=== PATIENT | female | born 1955 | race Caucasian/White ===

== ENCOUNTER 2017-11-28 05:23 | Day surgery (SDC) | payer OTHER ==
[2017-11-21 13:55] VITALS: BP 124/67
[~2017-11-28] VITALS: Ht 165.1 cm; Wt 135.5 kg
[~2017-11-28 05:23] MED LIST: ASPI-496 PO; CYCL5TAB PO; ESTR1TAB15 PO; FERR220S17 PO; LEVO175T5 PO; MELO15TA24 PO; SIMV40TA3 PO; Vitamin D2 PO; WARF-36 PO; vitamin d PO
[2017-11-28] MEDS ORDERED: LACTATED RINGERS 1,000 ML IV SCH (06:03)
[2017-11-28 06:06] VITALS: BP 124/67
[2017-11-28] MEDS ORDERED: LIDOCAINE 1%-EPI 1:100K, 30ML ONE (06:19)
[2017-11-28] MEDS ORDERED: ROPIvacaine/PF 0.5%, 30 ML ONE (06:19)
[2017-11-28] MEDS ORDERED: LIDOCAINE-MPF 1%, 2ML INFIL ONE (06:30)
[2017-11-28] MEDS ORDERED: FENTANYL PF 100 MCG/2ML ONE ×2 (06:42→08:09)
[2017-11-28] MEDS ORDERED: ONDANSETRON 2MG/ML, 2ML ONE (06:44)
[2017-11-28] MEDS ORDERED: DEXAMETHASONE 4 MG/ML, 1ML ONE (06:44)
[2017-11-28] MEDS ORDERED: CEFAZOLIN 1,000 MG ONE ×2 (06:44→07:00)
[2017-11-28] MEDS ORDERED: PROPOFOL 50 ML ONE ×2 (06:44→07:39)
[2017-11-28] MEDS ORDERED: PROPOFOL 10 MG/ML, 20ML ONE (06:44)
[2017-11-28] MEDS ORDERED: ALBUTEROL/IPRATROPIUM 2.5MG/0.5MG, 3 ML NPPB PRN (07:00)
[2017-11-28] MEDS ORDERED: PROMETHAZINE 25 MG SUPP PR PRN (07:00)
[2017-11-28] MEDS ORDERED: HYDROmorphone 1 MG/ML, 1ML IV PRN (07:00)
[2017-11-28] MEDS ORDERED: EPHEDRINE 50 MG/ML, 1ML IM PRN (07:00)
[2017-11-28] MEDS ORDERED: SCOPOLAMINE PATCH, 1.5MG PATCH.TD72 TD ONE (07:00)
[2017-11-28] MEDS ORDERED: PROMETHAZINE 25 MG/ML, 1ML IV PRN (07:00)
[2017-11-28] MEDS ORDERED: OXYcodone 5 MG/5 ML ORAL.SOL UDC PO PRN (07:00)
[2017-11-28] MEDS ORDERED: MEPERIDINE/PF 25MG/0.5ML IVPush PRN (07:00)
[2017-11-28] MEDS ORDERED: GABAPENTIN 300 MG CAPSULE PO ONE (07:00)
[2017-11-28] MEDS ORDERED: MIDAZOLAM 1 MG/ML, 2ML IV PRN (07:00)
[2017-11-28] MEDS ORDERED: LABETALOL 5MG/ML, 20ML IV PRN (07:00)
[2017-11-28] MEDS ORDERED: ACETAMINOPHEN 500 MG TABLET PO ONE (07:00)
[2017-11-28] MEDS ORDERED: ONDANSETRON 2MG/ML, 2ML IV PRN (07:00)
[2017-11-28] MEDS ORDERED: LIDOCAINE 1%-EPI 1:100K, 30ML INFIL ONE (07:25)
[2017-11-28] MEDS ORDERED: ROPIvacaine/PF 0.5%, 30 ML INFIL ONE (07:26)
[2017-11-28] MEDS ORDERED: LIDOCAINE-MPF 2% ,5ML ONE (07:39)
[2017-11-28] MEDS ORDERED: KETOROLAC 30 MG/1 ML ONE (07:39)
[2017-11-28] MEDS ORDERED: OXYcodone 5 MG/5 ML ORAL.SOL UDC ONE (08:09)
[2017-11-28] MEDS: FENTANYL PF 100 MCG/2ML IV PRN ×2 (08:12→08:22)
== END 2017-11-28 10:10 | disposition home or self-care (01) ==
LOC: OUT 05:23
PROVIDERS: ATTEND Orthopaedic Surgery
DX: S83.241A Other tear of medial meniscus, current injury, right knee, initial encounter (principal); S83.281A Other tear of lateral meniscus, current injury, right knee, initial encounter; M94.261 Chondromalacia, right knee; M65.861 Other synovitis and tenosynovitis, right lower leg; E66.01 Morbid (severe) obesity due to excess calories; X58.XXXA Exposure to other specified factors, initial encounter; Y93.89 Activity, other specified; Y92.89 Other specified places as the place of occurrence of the external cause; Y99.8 Other external cause status; Z68.42 Body mass index [BMI] 45.0-49.9, adult; Z88.5 Allergy status to narcotic agent; Z79.82 Long term (current) use of aspirin; Z86.718 Personal history of other venous thrombosis and embolism; Z98.890 Other specified postprocedural states; Z79.899 Other long term (current) drug therapy
CPT/HCPCS: 29880; J0690; J1100; J1885; J2405; J2704; J2795; J3010; J3490; J7120

== ENCOUNTER 2018-01-21 09:53 | Day surgery (SDC) | payer OTHER ==
[~2018-01-21] VITALS: Ht 165.1 cm; Wt 133.6 kg
[2018-01-21] MEDS ORDERED: LACTATED RINGERS 1,000 ML IV SCH (10:20)
[2018-01-21 10:54] VITALS: BP 133/82
[2018-01-21] MEDS ORDERED: FENTANYL PF 100 MCG/2ML ONE (11:51)
[2018-01-21] MEDS ORDERED: MIDAZOLAM 1 MG/ML, 2ML ONE (11:51)
[2018-01-21] MEDS ORDERED: METOCLOPRAMIDE 5 MG/ML, 2ML ONE (12:10)
[2018-01-21] MEDS ORDERED: LIDOCAINE JELLY 2%, 30GM ONE (12:10)
[2018-01-21] MEDS ORDERED: PROPOFOL 10 MG/ML, 20ML ONE (12:10)
[2018-01-21] MEDS ORDERED: PHENYLEPHRINE 10 MG/ML ONE (12:10)
[2018-01-21] MEDS ORDERED: DEXAMETHASONE 4 MG/ML, 1ML ONE (12:10)
[2018-01-21] MEDS ORDERED: ONDANSETRON 2MG/ML, 2ML ONE (12:10)
[2018-01-21] MEDS ORDERED: LIDOCAINE-MPF 2% ,5ML ONE (12:10)
[2018-01-21] MEDS ORDERED: SUCCINYLCHOLINE 20 MG/ML, 10ML ONE (12:10)
[2018-01-21] MEDS ORDERED: LABETALOL 5MG/ML, 20ML IV PRN (13:00)
[2018-01-21] MEDS ORDERED: ONDANSETRON 2MG/ML, 2ML IVPush PRN (13:00)
[2018-01-21] MEDS ORDERED: MIDAZOLAM 1 MG/ML, 2ML IV PRN (13:00)
[2018-01-21] MEDS ORDERED: MEPERIDINE/PF 25MG/0.5ML IVPush PRN (13:00)
[2018-01-21] MEDS ORDERED: HYDROmorphone 1 MG/ML, 1ML IV PRN (13:00)
[2018-01-21] MEDS ORDERED: FENTANYL PF 100 MCG/2ML IV PRN (13:00)
[2018-01-21] MEDS ORDERED: OXYcodone 5 MG/5 ML ORAL.SOL UDC PO PRN (13:00)
== END 2018-01-21 14:40 | disposition home or self-care (01) ==
LOC: OUT 09:53
PROVIDERS: ATTEND Internal Medicine
DX: D50.9 Iron deficiency anemia, unspecified (principal); K31.89 Other diseases of stomach and duodenum; E66.9 Obesity, unspecified; E78.00 Pure hypercholesterolemia, unspecified; Z88.5 Allergy status to narcotic agent; Z98.84 Bariatric surgery status
CPT/HCPCS: 43239; 45378; 88305; J0330; J1100; J2250; J2370; J2405; J2704; J2765; J3010; J3490; J7120

== ENCOUNTER → 2019-11-28 | Outpatient (CLI) | payer OTHER ==
[~2019-11-28] MED LIST changes: +FERR220S16 PO; -FERR220S17 PO; +SIMV40TA20 PO; -SIMV40TA3 PO
== END | disposition home or self-care (01) ==
LOC: STAR 08:50
PROVIDERS: ATTEND Thoracic Surgery (Cardiothoracic Vascular Surgery)
DX: Z01.818 Encounter for other preprocedural examination (principal); Z11.59 Encounter for screening for other viral diseases; K44.9 Diaphragmatic hernia without obstruction or gangrene
CPT/HCPCS: 36415; 87635; 93005

== ENCOUNTER 2019-12-03 07:22 | Inpatient (IN) | payer OTHER ==
[~2019-12-03] VITALS: Ht 167.6 cm; Wt 138.8 kg
[~2019-12-03 07:22] MED LIST changes: +BUPIVACAINE/PF-EPI 0.5% 1:200K ONE
[2019-12-03] MEDS ORDERED: LACTATED RINGERS 1,000 ML IV SCH (07:56)
[2019-12-03 07:57] VITALS: BP 139/83
[2019-12-03] MEDS ORDERED: CHLORHEXIDINE 15 ML UDC MM ONE (08:00)
[2019-12-03] MEDS ORDERED: CHLORHEXIDINE 15 ML UDC ONE (08:03)
[2019-12-03] MEDS ORDERED: FENTANYL PF 250 MCG/5ML ONE (08:05)
[2019-12-03] MEDS ORDERED: MIDAZOLAM 1 MG/ML, 2ML ONE (08:05)
[2019-12-03] MEDS ORDERED: CEFAZOLIN 1,000 MG ONE ×2 (08:08→09:25)
[2019-12-03] MEDS ORDERED: PROPOFOL 10 MG/ML, 20ML ONE (08:08)
[2019-12-03] MEDS ORDERED: DEXAMETHASONE 4 MG/ML, 1ML ONE (08:08)
[2019-12-03] MEDS ORDERED: GLYCOPYRROLATE 0.2MG/1ML, 5ML ONE (08:08)
[2019-12-03] MEDS ORDERED: ROCURONIUM 10MG/ML,5ML ONE (08:08)
[2019-12-03] MEDS ORDERED: ONDANSETRON 2MG/ML, 2ML ONE (08:08)
[2019-12-03] MEDS ORDERED: NEOSTIGMINE 1 MG/ML, 10ML ONE (08:08)
[2019-12-03] MEDS ORDERED: SUGAMMADEX 200 MG/2 ML IVPush ONE (09:26)
[2019-12-03] MEDS ORDERED: HYDROmorphone 1 MG/ML, 1ML INJ IVPush PRN (09:30)
[2019-12-03] MEDS ORDERED: FENTANYL PF 100 MCG/2ML IV PRN (09:30)
[2019-12-03] MEDS ORDERED: HALOPERIDOL 5 MG/ML IV PRN (09:30)
[2019-12-03] MEDS ORDERED: PROMETHAZINE 25 MG/ML, 1ML IVPush PRN (09:30)
[2019-12-03] MEDS ORDERED: LABETALOL 5MG/ML, 20ML IV PRN (09:30)
[2019-12-03] MEDS ORDERED: OXYcodone 5 MG/5 ML ORAL.SOL UDC PO PRN (09:30)
[2019-12-03] MEDS ORDERED: hydrALAzine 20 MG/ML, 1ML IV PRN (09:30)
[2019-12-03] MEDS ORDERED: MEPERIDINE/PF 25MG/0.5ML IVPush PRN (09:30)
[2019-12-03] MEDS ORDERED: FENTANYL PF 100 MCG/2ML ONE ×5 (09:56→10:46)
[2019-12-03] MEDS ORDERED: BUPIVACAINE/PF-EPI 0.5% 1:200K ONE (10:00)
[2019-12-03] MEDS ORDERED: PHENOL THROAT SPRAY BOTTLE MM PRN (11:30)
[2019-12-03] MEDS ORDERED: ENALAPRILAT 1.25 MG/ML, 2ML IV PRN (11:30)
[2019-12-03] MEDS ORDERED: DIPHENHYDRAMINE 50 MG/ML, 1ML IV PRN (11:30)
[2019-12-03] MEDS ORDERED: HYDROcodone/APAP 7.5-325MG/15ML UDC PO PRN (11:30)
[2019-12-03] MEDS ORDERED: hydrALAzine 20 MG/ML, 1ML IVPush PRN (11:30)
[2019-12-03] MEDS ORDERED: PROMETHAZINE 12.5 MG SUPP PR PRN (11:30)
[2019-12-03] MEDS ORDERED: LORazepam 2 MG/ML, 1ML IV PRN (11:30)
[2019-12-03] MEDS ORDERED: morphine SULFATE 10 MG/ML, 1ML ONE (12:17)
[2019-12-03] MEDS: morphine SULFATE 10 MG/ML, 1ML IVPush PRN ×8 (12:18→20:45)
[2019-12-03] MEDS: LACTATED RINGERS 1,000 ML IV SCH ×2 (12:51→15:53)
[2019-12-03 14:32] VITALS: BP 127/73
[2019-12-03 18:44] VITALS: BP 146/82
[2019-12-03] MEDS: ONDANSETRON 2MG/ML, 2ML IVPush PRN (20:45)
[2019-12-04 00:56] VITALS: BP 128/80
[2019-12-04 03:45] VITALS: BP 137/84
[2019-12-04] MEDS: ONDANSETRON 2MG/ML, 2ML IVPush PRN (05:17)
[2019-12-04] MEDS: morphine SULFATE 10 MG/ML, 1ML IVPush PRN ×2 (05:17→10:39)
[2019-12-04] MEDS: LEVOTHYROXINE 175 MCG TABLET PO SCH (05:26)
[2019-12-04 06:31] VITALS: BP 129/83
[2019-12-04 06:49] LABS: BASOPHILS # (AUTO) 0.04 x10^3/uL (0-0.1); BASOPHILS % (AUTO) 1 % (0-1); EOSINOPHILS % (AUTO) 0 % (1-7); LYMPHOCYTES # (AUTO) 0.56 x10^3/uL (1-3.4); LYMPHOCYTES % (AUTO) 7 % (22-44); MD NO; MEAN CORPUSCULAR HEMOGLOBIN 26.3 pg (27.0-34.8); MEAN CORPUSCULAR HGB CONC 31.8 g/dL (32.4-35.8); MEAN CORPUSCULAR VOLUME 82.8 fL (80-100); MEAN PLATELET VOLUME 9.7 fL (7.4-10.4); MONOCYTES # (AUTO) 0.59 x10^3/uL (0.2-0.8); MONOCYTES % (AUTO) 7 % (2-9); NEUTROPHILS # (AUTO) 7.44 x10^3/uL (1.8-6.8); NEUTROPHILS % (AUTO) 86 % (42-75); PLATELET COUNT 231 x10^3/uL (130-400); RED BLOOD COUNT 4.92 x10^6/uL (3.82-5.3); RED CELL DISTRIBUTION WIDTH 14.4 % (9.6-15.2)
[2019-12-04 06:58] LABS: ALBUMIN 3.3 g/dL (3.4-5.0); ANION GAP 3 mmol/L (5-15); CALCIUM 9.4 mg/dL (8.5-10.1); CHLORIDE 107 mmol/L (98-107); CREATININE 0.78 mg/dL (0.55-1.02)
[2019-12-04] MEDS: ENOXAPARIN 40 MG/0.4 ML SQ SCH (08:56)
[2019-12-04] MEDS: PANTOPRAZOLE 40 MG IV IVPush SCH (08:57)
[2019-12-04] MEDS: PROMETHAZINE 25 MG/ML, 1ML IM PRN (08:59)
[2019-12-04] MEDS: LACTATED RINGERS 1,000 ML IV SCH (10:39)
[2019-12-04] MEDS: KETOROLAC 30 MG/1 ML IVPush PRN ×2 (13:07→20:35)
[2019-12-04 13:36] VITALS: BP 141/82
[2019-12-04 18:45] VITALS: BP 138/81
[2019-12-05 00:04] VITALS: BP 136/79
[2019-12-05] MEDS: LACTATED RINGERS 1,000 ML IV SCH ×2 (00:24→08:24)
[2019-12-05] MEDS: ONDANSETRON 2MG/ML, 2ML IVPush PRN (00:30)
[2019-12-05] MEDS: PROMETHAZINE 25 MG/ML, 1ML IM PRN (03:11)
[2019-12-05] MEDS: LEVOTHYROXINE 175 MCG TABLET PO SCH (05:40)
[2019-12-05 06:57] VITALS: BP 126/81
[2019-12-05] MEDS: KETOROLAC 30 MG/1 ML IVPush PRN (09:42)
[2019-12-05] MEDS: PANTOPRAZOLE 40 MG IV IVPush SCH (09:42)
[2019-12-05] MEDS: ENOXAPARIN 40 MG/0.4 ML SQ SCH (09:42)
[2019-12-05] MEDS ORDERED: HYDR-3240 PO (12:06)
[2019-12-05] MEDS ORDERED: OMEP-110 PO (12:07)
== END 2019-12-05 13:40 | disposition home or self-care (01) | DRG 327 ==
LOC: ORIP 07:22 → 4NE 13:07 → DCLOUNGE 12-05 13:32
PROVIDERS: ADMIT Thoracic Surgery (Cardiothoracic Vascular Surgery); ATTEND Thoracic Surgery (Cardiothoracic Vascular Surgery)
PROC: 0DNW4ZZ Release Peritoneum, Percutaneous Endoscopic Approach (ICD-10-PCS; 2019-12-03)
PROC: 0DP64CZ Removal of Extraluminal Device from Stomach, Percutaneous Endoscopic Approach (ICD-10-PCS; principal; 2019-12-03 09:30)
PROC: 0BQT4ZZ Repair Diaphragm, Percutaneous Endoscopic Approach (ICD-10-PCS; 2019-12-03 09:30)
DX: K44.9 Diaphragmatic hernia without obstruction or gangrene (principal); K95.09 Other complications of gastric band procedure; Z68.42 Body mass index [BMI] 45.0-49.9, adult; K66.0 Peritoneal adhesions (postprocedural) (postinfection); R13.10 Dysphagia, unspecified; E66.01 Morbid (severe) obesity due to excess calories; K21.9 Gastro-esophageal reflux disease without esophagitis; Y83.1 Surgical operation with implant of artificial internal device as the cause of abnormal reaction of the patient, or of later complication, without mention of misadventure at the time of the procedure; R32 Unspecified urinary incontinence; Z98.84 Bariatric surgery status
CPT/HCPCS: 36415; 80048; 82040; 85025; G0378; J0690; J1100; J1650; J1885; J2250; J2405; J2550; J2704; J2710; J3010; C9113; J2270; J7120